=== PATIENT | male | born 1975 | race Caucasian/White ===

== ENCOUNTER 2024-06-08 15:31 | Inpatient (IN) | payer MEDICARE, MEDICAID ==
[~2024-06-08] VITALS: Ht 175.3 cm; Wt 111.1 kg
[2024-06-08] MEDS: LIDOCAINE 5% PATCH TOP SCH (16:30)
[2024-06-08] MEDS: ACETAMINOPHEN 325MG TABLET PO ONE (17:34)
[2024-06-08 21:20] LABS: BASOPHILS % 0.8 % (0.0-2.0); DIFFERENTIAL COMMENT 0; EOSINOPHILS % 0.9 % (0.0-5.0); HEMATOCRIT. 35.8 % (42.0-52.0); HEMOGLOBIN. 11.8 g/dL (14.0-18.0); LYMPHOCYTES % 8.9 % (20.0-50.0); MEAN CORPUSCULAR HEMOGLOBIN 34.3 pg (28.0-32.0); MEAN CORPUSCULAR HGB CONC 33.1 g/dL (31.0-37.0); MEAN CORPUSCULAR VOLUME 103.6 fL (80.0-94.0); MONOCYTES % 6.1 % (2.0-8.0); NEUTROPHILS % 83.3 % (40.0-76.0); PLATELET 162 x1000/uL (130-400); RED BLOOD CELL COUNT 3.45 mill/uL (4.7-6.1); RED CELL DISTRIBUTION WIDTH 14.8 % (11.6-14.6); WHITE BLOOD COUNT 9.7 x1000/uL (4.5-11.0)
[2024-06-08 21:27] LABS: CHLORIDE 102 mEq/L (98-107); SODIUM 137 mEq/L (136-145)
[2024-06-08 21:28] LABS: CALCIUM 9.2 mg/dL (8.7-10.4); CARBON DIOXIDE 18 mEq/L (21-32)
[2024-06-08 21:33] LABS: GLUCOSE 109 mg/dL (70-105); UREA NITROGEN BLOOD 92 mg/dL (9-23)
[2024-06-08 21:35] LABS: ALANINE AMINOTRANSFERASE 22 IU/L (10-49); ALBUMIN 4.1 g/dL (3.2-4.8); ASPARTATE AMINOTRANSFERASE 25 IU/L (<34); BILIRUBIN DIRECT 0.1 mg/dL (<=3.0); BILIRUBIN TOTAL 0.3 mg/dL (0.1-1.0); PROTEIN TOTAL 7.3 g/dL (6.0-8.3); TROPONIN I HIGH SENSITIVITY 18 ng/L (3.0-53)
[2024-06-08 21:47] LABS: CREATININE 16.5 mg/dL (0.6-1.3); POTASSIUM 6.5 mEq/L (3.5-5.1)
[2024-06-08] MEDS: INSULIN REGULAR (HUMULIN R) 1000UNITS/10ML VIAL IV ONE (22:09)
[2024-06-08] MEDS: DEXTROSE 50% WATER 50ML SYRINGE IV ONE (22:10)
[2024-06-08] MEDS: CALCIUM CHLORIDE 1GM/10ML SYR IV ONE (22:10)
[2024-06-08] MEDS: SODIUM POLYSTYRENE SULFONATE 15 G/60 ML BOT PO ONE (22:10)
[2024-06-08 22:26] VITALS: PULSE 73; RESP 16; O2SAT 96
[2024-06-08] MEDS: ALBUTEROL (0.083%) 2.5MG/3ML NEB HHN ONE (22:26)
[2024-06-08] MEDS ORDERED: HYDR25TA78 PO (22:43)
[2024-06-09] VITALS (14 sets, daily range): BP systolic 138–180; BP diastolic 67–97; PULSE 65–92; RESP 16–19; TEMP 36.2–36.7; O2SAT 97–99
[2024-06-09] MEDS ORDERED: SEVELAMER CARBONATE PO (01:21)
[2024-06-09] MEDS ORDERED: ATEN100T PO (01:21)
[2024-06-09] MEDS ORDERED: LEVO100C4 PO (01:21)
[2024-06-09 01:37] LABS: HEMATOCRIT 32.6 % (42.0-52.0); HEMOGLOBIN 11.1 g/dL (14.0-18.0); MEAN CORPUSCULAR HEMOGLOBIN 34.8 pg (28.0-32.0); MEAN CORPUSCULAR VOLUME 102.3 fL (80.0-94.0); PLATELET 159 x1000/uL (130-400); RED BLOOD CELL COUNT 3.18 mill/uL (4.7-6.1); RED CELL DISTRIBUTION WIDTH 14.6 % (11.6-14.6); WHITE BLOOD COUNT 10.4 x1000/uL (4.5-11.0)
[2024-06-09] MEDS: ACETAMINOPHEN 325MG TABLET PO PRN (01:42)
[2024-06-09 01:50] LABS: CALCIUM 9.6 mg/dL (8.7-10.4)
[2024-06-09 02:51] LABS: CREATININE 17.6 mg/dL (0.6-1.3); POTASSIUM 6.5 mEq/L (3.5-5.1)
[2024-06-09 03:37] LABS: HEPATITIS B SURFACE ANTIGEN NEGATIVE (Negative)
[2024-06-09 03:57] LABS: HEPATITIS A AB IGM NEGATIVE (Negative)
[2024-06-09] MEDS: ACETAMINOPHEN 325MG TABLET PO NR (03:57)
[2024-06-09 03:58] LABS: HEPATITIS B CORE AB IGM NEGATIVE (Negative)
[2024-06-09 03:59] LABS: HEPATITIS C AB NON REACTIVE (Neg) (Negative)
[2024-06-09] MEDS: HYDRALAZINE HCL 50MG TABLET PO SCH (05:27)
[2024-06-09] MEDS: METOPROLOL TARTRATE 50MG TABLET PO SCH (08:51)
[2024-06-09] MEDS: SEVELAMER CARBONATE 800 MG TABLET PO SCH ×2 (08:52→17:52)
[2024-06-09] MEDS: FOLIC ACID/VITAMIN B COMP W-C TABLET PO SCH (08:52)
[2024-06-09] MEDS: LEVOTHYROXINE SODIUM 100MCG TABLET PO SCH (08:53)
[2024-06-09 18:48] LABS: POTASSIUM 5.1 mEq/L (3.5-5.1)
[2024-06-09 18:49] LABS: CALCIUM 8.8 mg/dL (8.7-10.4)
[2024-06-09 18:57] LABS: CREATININE 14.1 mg/dL (0.6-1.3)
[2024-06-10 00:13] VITALS: BP 187/103; PULSE 72; RESP 18; TEMP 36.3; O2SAT 99
[2024-06-10] MEDS: HYDRALAZINE 20MG/ML VIAL IV PRN (01:09)
[2024-06-10 04:00] VITALS: BP 181/94; PULSE 74; RESP 18; TEMP 36.3; O2SAT 98
[2024-06-10] MEDS: HYDRALAZINE HCL 50MG TABLET PO SCH (04:45)
[2024-06-10] MEDS ORDERED: HYDRALAZINE HCL 50MG TABLET PO SCH (06:00)
[2024-06-10 08:00] VITALS: BP 178/86; PULSE 74; RESP 18; TEMP 36.6; O2SAT 100
[2024-06-10] MEDS: HYDRALAZINE 20MG/ML VIAL IV NR (09:15)
[2024-06-10 09:52] VITALS: BP 168/102
[2024-06-10 11:35] LABS: BASOPHILS % 0.5 % (0.0-2.0); DIFFERENTIAL COMMENT 0; HEMATOCRIT. 36.7 % (42.0-52.0); HEMOGLOBIN. 11.8 g/dL (14.0-18.0); LYMPHOCYTES % 10.9 % (20.0-50.0); MEAN CORPUSCULAR HEMOGLOBIN 32.4 pg (28.0-32.0); MEAN CORPUSCULAR HGB CONC 32.2 g/dL (31.0-37.0); MEAN CORPUSCULAR VOLUME 100.5 fL (80.0-94.0); MEAN PLATELET VOLUME 8.7 fl (7.4-10.4); MONOCYTES % 10.4 % (2.0-8.0); NEUTROPHILS % 76.2 % (40.0-76.0); PLATELET 154 x1000/uL (130-400); RED BLOOD CELL COUNT 3.66 mill/uL (4.7-6.1); RED CELL DISTRIBUTION WIDTH 14.4 % (11.6-14.6)
[2024-06-10 11:53] LABS: CHLORIDE 98 mEq/L (98-107); POTASSIUM 5.8 mEq/L (3.5-5.1); SODIUM 136 mEq/L (136-145)
[2024-06-10 11:54] LABS: CALCIUM 9.6 mg/dL (8.7-10.4); CARBON DIOXIDE 20 mEq/L (21-32)
[2024-06-10 11:59] LABS: GLUCOSE 93 mg/dL (70-105); UREA NITROGEN BLOOD 84 mg/dL (9-23)
[2024-06-10 12:00] VITALS: BP 210/103; PULSE 68; RESP 18; TEMP 36.5; O2SAT 99
[2024-06-10 12:01] LABS: ALANINE AMINOTRANSFERASE 38 IU/L (10-49); ALBUMIN 4.2 g/dL (3.2-4.8); ASPARTATE AMINOTRANSFERASE 35 IU/L (<34); BILIRUBIN DIRECT 0.2 mg/dL (<=3.0); BILIRUBIN TOTAL 0.4 mg/dL (0.1-1.0); PHOSPHORUS 7.4 mg/dL (2.5-4.9)
[2024-06-10 12:02] LABS: PROTEIN TOTAL 7.6 g/dL (6.0-8.3)
[2024-06-10 12:09] LABS: CREATININE 16.4 mg/dL (0.6-1.3)
[2024-06-10] MEDS: HYDRALAZINE HCL 50MG TABLET PO NR (13:02)
[2024-06-10] MEDS: HYDRALAZINE HCL 100MG TABLET PO SCH (13:03)
[2024-06-10] MEDS: SEVELAMER CARBONATE 800 MG TABLET PO SCH (13:04)
[2024-06-10] MEDS: CLONIDINE 0.2MG TABLET PO NR (13:05)
[2024-06-10 13:56] VITALS: BP 166/85
== END 2024-06-10 14:35 | disposition left against medical advice (07) | DRG 640 ==
LOC: ER 15:31 → 7WST 22:26 → EDBEDREQTM 22:31 → EDBEDREQ 22:31
PROVIDERS: ADMIT Internal Medicine; ATTEND Internal Medicine
PROC: 5A1D70Z Performance of Urinary Filtration, Intermittent, Less than 6 Hours Per Day (ICD-10-PCS; principal; 2024-06-09)
DX: E87.70 Fluid overload, unspecified (principal); N18.6 End stage renal disease; I16.1 Hypertensive emergency; I12.0 Hypertensive chronic kidney disease with stage 5 chronic kidney disease or end stage renal disease; E87.5 Hyperkalemia; D64.9 Anemia, unspecified; Z53.29 Procedure and treatment not carried out because of patient's decision for other reasons; E11.22 Type 2 diabetes mellitus with diabetic chronic kidney disease; E03.9 Hypothyroidism, unspecified; Z99.2 Dependence on renal dialysis; Z86.73 Personal history of transient ischemic attack (TIA), and cerebral infarction without residual deficits; Z88.0 Allergy status to penicillin; Z91.158 Patient's noncompliance with renal dialysis for other reason
CPT/HCPCS: 36415; 80048; 80076; 83735; 83880; 84100; 84484; 85025; 85027; 86705; 86709; 87340; 90935; 93005; 94070; 94640; 94664; 98960; 99285; A4606; J0360; J1815; J3490